=== PATIENT | male | born 1980 | race African-American/Black ===

== ENCOUNTER 2022-08-13 19:27 | Emergency (ER) | payer MEDICAID ==
[~2022-08-13] VITALS: Ht 175.3 cm; Wt 88.6 kg
[2022-08-13 19:35] VITALS: BP 139/73
--- NOTE | 2022-08-13 20:19 | NUR ---
LOIS VILLA examining patient.
[2022-08-13] MEDS ORDERED: HALOPERIDOL IM 5 MG/ML VIAL IM ONE (20:35)
--- NOTE | 2022-08-13 20:41 | NUR ---
PT TAKEN TO BED 2
[2022-08-13] MEDS ORDERED: CAPS1ADH5 TP (20:43)
--- NOTE | 2022-08-13 20:50 | NUR ---
Pt medicated as ordered;tolerated well.
[2022-08-13 21:11] VITALS: BP 135/69
--- NOTE | 2022-08-13 21:11 | NUR ---
Patient discharged with v/s stable. Written and verbal after care instructions given and explained. Patient alert, oriented and verbalized understanding of instructions. All questions addressed prior to discharge. ID band removed. Patient advised to follow up with PMD. Rx of Salonpas sent to preferred pharmacy. Patient educated on indication of medication including possible reaction and side effects. Opportunity to ask questions provided and answered.
== END 2022-08-13 21:11 | disposition home or self-care (01) ==
LOC: MED 19:27
DX: R11.2 Nausea with vomiting, unspecified (principal); F12.90 Cannabis use, unspecified, uncomplicated; J45.909 Unspecified asthma, uncomplicated; Z79.82 Long term (current) use of aspirin
CPT/HCPCS: 96372; 99283; J1630